=== PATIENT | male | born 1980 | race Caucasian/White ===

== ENCOUNTER → 2016-10-01 | Outpatient (CLI) | payer BC ==
[~2016-10-01] VITALS: Ht 172.7 cm; Wt 90.1 kg
[~2016-10-01] MED LIST: GLUC1CAP35 PO; MULT-506 PO; OMEG10007 PO
[2016-10-01 16:01] VITALS: BP 143/88; PULSE 73; Ht 172.7 cm; Wt 90.1 kg
== END | disposition home or self-care (01) ==
LOC: C.NEUR 14:42
PROVIDERS: ATTEND Internal Medicine Pulmonary Disease
DX: R06.83 Snoring (principal); R06.81 Apnea, not elsewhere classified; G47.19 Other hypersomnia; Z98.890 Other specified postprocedural states

== ENCOUNTER → 2016-10-07 | Outpatient (CLI) | payer BC ==
--- NOTE | 2016-10-10 17:25 | POLYSOMNOGRAPH REPORT ---
CLINICAL DATA: A 36-year-old male with BMI of 30.[address] Stone and myself for a sleep study. [facility] des[facility]. His is concerned about sleep apnea due to snoring and witnessed apneic episodes along with fatigue and hypersomnia. On the evening of 10/07/2016, home sleep apnea test was performed using a [employer] type 3 monitor. RECORDING RESULTS: Total recording time was 10 hours. The patient's estimated sleep time and the patient monitoring time was 8.7 hours. RESPIRATORY DATA: Mild sleep apnea was documented. The TAVON was 7. There were 3 obstructive, 1 mixed, and 4 central apneic episodes. There were 53 hypopneic episodes. The longest respiratory event recorded was 49 seconds. OXIMETRY DATA: Nocturnal hypoxemia was seen. Oxygen alejandro of 78%. Mean saturation was 96%. Time below 89% was 7 minutes. HEART RATE DATA: Heart rates ranged from 46-64 beats per minute. SNORING DATA: Snoring was recorded throughout the night. IMPRESSION: Mild sleep apnea/hypopnea with an TAVON of 7 with nocturnal hypoxemia. RECOMMENDATIONS: The patient may benefit from weight loss, use of an oral appliance, and repeat sleep study with CPAP. Clinical correlation is needed. ELLA
== END | disposition home or self-care (01) ==
LOC: C.NEUR 08:20
PROVIDERS: ATTEND Internal Medicine Pulmonary Disease
DX: G47.19 Other hypersomnia (principal); R06.83 Snoring; R06.81 Apnea, not elsewhere classified

== ENCOUNTER → 2016-10-25 | Outpatient (CLI) | payer BC ==
[~2016-10-25] VITALS: Ht 172.7 cm; Wt 89.2 kg
[2016-10-25 15:24] VITALS: BP 131/75; PULSE 66; Ht 172.7 cm; Wt 89.2 kg
== END | disposition home or self-care (01) ==
LOC: C.NEUR 14:45
PROVIDERS: ATTEND Internal Medicine Pulmonary Disease
DX: G47.30 Sleep apnea, unspecified (principal)

== ENCOUNTER 2021-08-27 03:17 | Inpatient (IN) ==
[2021-08-27] MEDS ORDERED: HYDROmorphone INJ 0.5 MG/0.5 ML SYR IV STA (04:38)
[2021-08-27 04:50] LABS: Basophils # (auto) 0.02 K/uL (0-0.2); Basophils % (auto) 0.1 %; Hematocrit (blood only) 43.9 % (42-52); Hemoglobin 14.5 g/dL (14.0-18.0); Immature Granulocytes # (auto) 0.03 K/uL (0.00-0.02); Immature Granulocytes % (auto) 0.2 %; Lymphocytes # (auto) 1.11 K/uL (1.2-3.4); Lymphocytes % (auto) 6.6 %; Mean Corpuscular Hemoglobin 31.1 pg (25-34); Mean Corpuscular Volume 94.2 fL (80-100); Mean Platelet Volume 9.4 fL (7.4-10.4); Monocytes # (auto) 1.53 K/uL (0.11-0.59); Monocytes % (auto) 9.2 %; Neutrophils # (auto) 14.01 K/uL (1.4-6.5); Neutrophils % (auto) 83.9 %; Platelet Count 284 K/uL (130-400); RDW Coefficient of Variation 12.6 % (11.5-14.5); RDW Standard Deviation 43.1 fL (36.4-46.3); Red Blood Count 4.66 M/uL (4.7-6.1)
[2021-08-27 05:09] LABS: Alanine Aminotransferase 31 (12-78); Albumin Level 2.9 gm/dl (3.4-5.0); Aspartate Aminotransferase 17 U/L (15-37); Blood Urea Nitrogen 7 mg/dl (7-18); Calcium 9.7 mg/dl (8.5-10.1); Carbon Dioxide 25 mmol/L (21-32); Chloride 103 mmol/L (98-107); Creatinine Clr Calc Pharmacy 110.9 ml/min; Est GFR (African American) 119.2 ml/min; Est GFR (Non-African American) 102.9 ml/min; Glucose 118 mg/dl (70-99); Lipase 166 U/L (73-393); Sodium 135 mmol/L (136-145)
[2021-08-27 05:10] LABS: INR 1.1 (0.9-1.1); Partial Thromboplastin Ratio 1.1; Partial Thromboplastin Time 30.1 Seconds (21.0-31.0); Prothrombin Time 11.2 Seconds (9.0-12.0)
[2021-08-27 05:14] LABS: Albumin Globulin Ratio 0.5 (0.9-2); Alkaline Phosphatase 76 U/L (45-117); Bilirubin,Total 1.1 mg/dl (0.2-1); Globulin 5.4 gm/dl (2.5-4.0); Total Protein 8.3 gm/dl (6.4-8.2); Troponin I < 0.015 ng/ml (0-0.045)
[2021-08-27] MEDS ORDERED: OPTIRAY 320 125ml IV ONE (05:35)
--- NOTE | 2021-08-27 05:36 | Emergency Department Note ---
Impression & Plan Bilateral pulmonary embolism, COVID-19, Chest pain, pleuritic Admit to the [facility] service ED Provider Note NAME: FLORENCE ARREGUIN AGE: 41 SEX: M ARRIVES VIA: Walk-In INFORMANT: Patient ED PROVIDER(S): Dian Ferrell DO CHIEF COMPLAINT: Shortness of breath and chest pain PLAN: Disposition: Patient will be admitted to the [facility] Condition: Critical MEDICAL DECISION MAKING: This is a 41-year-old male patient who presents to the emergency department with shortness of breath and chest pain. Patient was diagnosed with Covid pneumonia last week. Triage Nursing notes reviewed and agree with them. Prior medical records reviewed Vital Signs: reviewed and remarkable for tachycardia and tachypnea Differential diagnosis: Pleuritic chest pain; PE; worsening pneumonia ER treatment provided: IV Dilaudid x2 V heparin bolus IV heparin drip Diagnostics interpreted by me: ECG: Sinus tachycardia at [address] segment elevation noted. There is nonspecific T wave changes in the lateral leads. There is no ectopy. Cardiac Monitoring: Sinus tachycardia at 109 Laboratory studies: See below Imaging studies: As per stat rad CTA: Bilateral pulmonary emboli HPI: 41/M arrives for evaluation of chest pain shortness of breath. Patient was diagnosed with Covid pneumonia last week and in the past 24 hours has developed fairly severe chest wall pain and inability to take a deep breath. The patient has significantly shallow breathing. ROS: See above HPI for pertinent positives & negatives. A total of 10 systems reviewed and were otherwise negative. PAST MEDICAL HISTORY:See Below PAST SURGICAL HISTORY:See Below FAMILY HISTORY:See Below SOCIAL HISTORY:Lives with his and family and works at [employer] for the rest of us. HOME MEDICATIONS:See Below ALLERGIES:See Below VITALS:See Below PHYSICAL EXAMINATION: HEENT: Head - normocephalic and atraumatic Pupils are equal, round, and reactive to light. Extraocular eye muscles are intact, and sclera are anicteric. Nose - moist nasal mucosa without discharge. Mouth - moist buccal mucosa. Oropharynx is nonerythematous and there is no tonsillar exudate or edema noted. Neck: Supple; no JVD, nuchal rigidity, cervical lymphadenopathy. Heart: Tachycardic rate and rhythm. There is a normal S1 and S2 with no murmurs, clicks, or gallops appreciated. Lungs: Clear to auscultation bilaterally with no wheezes, rales, or rhonchi. Abdomen: Soft, completely nontender, nondistended, with good bowel sounds. There are no palpable pulsatile masses or hepatosplenomegaly. There is no guarding, rigidity, or rebound noted. Extremities: No evidence of cyanosis, clubbing, or edema. There are easily palpable peripheral pulses. Skin: warm and dry with good turgor and no rashes. ED COURSE: Times/Reassessments: 0415: The patient was evaluated in room C5. A complete history and physical was performed. An order was placed for continuous cardiac monitoring. The patient was in a sinus tachycardia at a rate of 109. An IV lock was initiated and labs were drawn as above. The patient will go for a stat CT of the chest to rule out PE. A twelve-lead EKG was obtained as described above. The patient went for a CT scan of the chest to rule out PE. This was positive. The patient will be bolu sed with IV heparin and started on heparin drip. She was placed on supplemental oxygen. I have personally spent greater than 30 minutes of critical care time in the direct management of this patient. This includes bedside care, interpretation of diagnostic studies, and testing, discussion with consultants, patient, and family members, and other required patient management activities. This 30 m inutes is in excess of all separately billable procedures. 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 Required: No Beliefs That Will Affect Care: None marital status: Current Living Situation: Family current occupational status: employed Feels Safe at Home: Yes Assistive Devices: CPAP Allergies Allergies Allergy/AdvReac Type Severity Reaction Status Date / Time No Known Drug Allergies Allergy Verified 08/19/21 08:14 Home Meds Home Medications Medication Instructions Recorded Confirmed pantoprazole 20 mg tablet,delayed 20 mg PO DAILY 06/17/19 08/27/21 release Tumeric 1 cap PO UD 08/19/21 08/27/21 glucosamine-chondroitin 500 mg-400 1 tab PO UD 08/19/21 08/27/21 mg tablet multivitamin 1 tab PO UD 08/19/21 08/27/21 omega 0-gen-hea-fish oil 1,000 mg 1 cap PO UD 08/19/21 08/27/21 (120 mg-180 mg) capsule (Fish Oil) Previous Rx's Medication Instructions Recorded albuterol sulfate 90 mcg/actuation 3 inh INHALATION Q6H #18 g 08/19/21 aerosol inhaler benzonatate 200 mg capsule 200 mg PO TID PRN #30 cap 08/19/21 Results & Data (ED) Vital Signs Vital Signs - 24 hr 08/27/21 03:21 08/27/21 04:38 08/27/21 05:33 Temperature 37.5 C Temperature Source Temporal Artery Scan Pulse Rate 123 H 109 H Pulse Rate [Apical] 116 H Pulse Rate from SpO2 Sensor Respiratory Rate 30 H 21 34 H Respiratory Effort / Characteristics Non-Labored Spontaneous Respiratory Depth Normal Respiratory Pattern Blood Pressure 139/70 Blood Pressure [Right Arm] 139/89 Blood Pressure Mean 93 Blood Pressure Mean [Right Arm] 105 Pulse Oximetry 97 95 92 Oxygen Delivery Method Room Air Room Air Sepsis Recent Fever Within 48 Hours No Sepsis New/Unexplained Change in Mental Status No Sepsis Action Taken by Nursing Physician Notified 08/27/21 07:00 08/27/21 07:30 08/27/21 07:31 Temperature Temperature Source Pulse Rate 96 H 97 H Pulse Rate [Apical] 99 H Pulse Rate from SpO2 Sensor 97 H 97 H Respiratory Rate 26 H 28 H 28 H Respiratory Effort / Characteristics Spontaneous Respiratory Depth Normal Respiratory Pattern Rapid/Shallow Tachypnea Blood Pressure 137/99 Blood Pressure [Right Arm] 137/99 Blood Pressure Mean 111 Blood Pressure Mean [Right Arm] 111 Pulse Oximetry 94 92 92 Oxygen Delivery Method Room Air Sepsis Recent Fever Within 48 Hours Sepsis New/Unexplained Change in Mental Status Sepsis Action Taken by Nursing 08/27/21 07:32 08/27/21 08:00 08/27/21 08:30 Temperature Temperature Source Pulse Rate 99 H 94 H Pulse Rate [Apical] Pulse Rate from SpO2 Sensor 100 H 94 H Respiratory Rate 28 H 26 H Respiratory Effort / Characteristics Respiratory Depth Respiratory Pattern Blood Pressure 142/67 H Blood Pressure [Right Arm] Blood Pressure Mean 92 Blood Pressure Mean [Right Arm] Pulse Oximetry 92 92 91 Oxygen Delivery Method Room Air Sepsis Recent Fever Within 48 Hours Sepsis New/Unexplained Change in Mental Status Sepsis Action Taken by Nursing 08/27/21 09:00 08/27/21 09:06 08/27/21 09:30 Temperature Temperature Source Pulse Rate 95 H 100 H Pulse Rate [Apical] 97 H Pulse Rate from SpO2 Sensor 96 H 99 H Respiratory Rate 33 H 26 H 42 H Respiratory Effort / Characteristics Non-Labored Spontaneous Respiratory Depth Normal Respiratory Pattern Regular Blood Pressure 119/78 121/73 Blood Pressure [Right Arm] 119/78 Blood Pressure Mean 91 89 Blood Pressure Mean [Right Arm] 91 Pulse Oximetry 93 93 93 Oxygen Delivery Method Room Air Sepsis Recent Fever Within 48 Hours Sepsis New/Unexplained Change in Mental Status Sepsis Action Taken by Nursing 08/27/21 10:00 Temperature Temperature Source Pulse Rate 119 H Pulse Rate [Apical] Pulse Rate from SpO2 Sensor 119 H Respiratory Rate 43 H Respiratory Effort / Characteristics Respiratory Depth Respiratory Pattern Blood Pressure 152/121 H Blood Pressure [Right Arm] Blood Pressure Mean 131 Blood Pressure Mean [Right Arm] Pulse Oximetry 93 Oxygen Delivery Method Sepsis Recent Fever Within 48 Hours Sepsis New/Unexplained Change in Mental Status Sepsis Action Taken by Nursing Laboratory Data Result diagrams: 08/27/21 04:41 08/27/21 04:41 Lab Results 08/27/21 08/27/21 08/27/21 Range/Units 04:41 04:41 04:41 WBC 16.70 H (4.8-10.8) K/uL RBC 4.66 L (4.7-6.1) M/uL Hgb 14.5 (14.0-18.0) g/dL Hct 43.9 (42-52) % MCV 94.2 (80-100) fL MCH 31.1 (25-34) pg MCHC 33.0 (32-36) g/dL RDW Std Deviation 43.1 (36.4-46.3) fL RDW Coeff of Nader 12.6 (11.5-14.5) % Plt Count 284 (130-400) K/uL MPV 9.4 (7.4-10.4) fL Immature Gran % (Auto) 0.2 % Neut % (Auto) 83.9 % Lymph % (Auto) 6.6 % Placer % (Auto) 9.2 % Eos % (Auto) 0.0 % Baso % (Auto) 0.1 % Neut # (Auto) 14.01 H (1.4-6.5) K/uL Lymph # (Auto) 1.11 L (1.2-3.4) K/uL Placer # (Auto) 1.53 H (0.11-0.59) K/uL Eos # (Auto) 0.00 (0-0.5) K/uL Baso # (Auto) 0.02 (0-0.2) K/uL Immature Gran # (Auto) 0.03 H (0.00-0.02) K/uL PT 11.2 (9.0-12.0) Seconds INR 1.1 (0.9-1.1) APTT 30.1 (21.0-31.0) Seconds PTT Ratio 1.1 Sodium 135 L (136-145) mmol/L Potassium 4.0 (3.5-5.1) mmol/L Chloride 103 (98-107) mmol/L Carbon Dioxide 25 (21-32) mmol/L Anion Gap 7.0 (3-11) BUN 7 (7-18) mg/dl Creatinine 0.91 (0.6-1.4) mg/dl Est Cr Clr Drug Dosing 110.9 ml/min Est GFR ( Amer) 119.2 ml/min Est GFR (Non-Af Amer) 102.9 ml/min BUN/Creatinine Ratio 8.0 L (10-20) Glucose 118 H (70-99) mg/dl Calcium 9.7 (8.5-10.1) mg/dl Total Bilirubin 1.1 H (0.2-1) mg/dl AST 17 (15-37) U/L ALT 31 (12-78) Alkaline Phosphatase 76 (45-117) U/L Troponin I < 0.015 (0-0.045) ng/ml C-Reactive Protein (0-0.29) mg/dl Total Protein 8.3 H (6.4-8.2) gm/dl Albumin 2.9 L (3.4-5.0) gm/dl Globulin 5.4 H (2.5-4.0) gm/dl Albumin/Globulin Ratio 0.5 L (0.9-2) Lipase 166 (73-393) U/L 08/27/21 Range/Units 04:41 WBC (4.8-10.8) K/uL RBC (4.7-6.1) M/uL Hgb (14.0-18.0) g/dL Hct (42-52) % MCV (80-100) fL MCH (25-34) pg MCHC (32-36) g/dL RDW Std Deviation (36.4-46.3) fL RDW Coeff of Nader (11.5-14.5) % Plt Count (130-400) K/uL MPV (7.4-10.4) fL Immature Gran % (Auto) % Neut % (Auto) % Lymph % (Auto) % Placer % (Auto) % Eos % (Auto) % Baso % (Auto) % Neut # (Auto) (1.4-6.5) K/uL Lymph # (Auto) (1.2-3.4) K/uL Placer # (Auto) (0.11-0.59) K/uL Eos # (Auto) (0-0.5) K/uL Baso # (Auto) (0-0.2) K/uL Immature Gran # (Auto) (0.00-0.02) K/uL PT (9.0-12.0) Seconds INR (0.9-1.1) APTT (21.0-31.0) Seconds PTT Ratio Sodium (136-145) mmol/L Potassium (3.5-5.1) mmol/L Chloride (98-107) mmol/L Carbon Dioxide (21-32) mmol/L Anion Gap (3-11) BUN (7-18) mg/dl Creatinine (0.6-1.4) mg/dl Est Cr Clr Drug Dosing ml/min Est GFR ( Amer) ml/min Est GFR (Non-Af Amer) ml/min BUN/Creatinine Ratio (10-20) Glucose (70-99) mg/dl Calcium (8.5-10.1) mg/dl Total Bilirubin (0.2-1) mg/dl AST (15-37) U/L ALT (12-78) Alkaline Phosphatase (45-117) U/L Troponin I (0-0.045) ng/ml C-Reactive Protein 16.40 H (0-0.29) mg/dl Total Protein (6.4-8.2) gm/dl Albumin (3.4-5.0) gm/dl Globulin (2.5-4.0) gm/dl Albumin/Globulin Ratio (0.9-2) Lipase (73-393) U/L Administered Medications Acetaminophen (Acetaminophen 500 Mg Tab) 1,000 mg PO Q8H TEREZA Stop: 09/26/21 11:59 Last Admin: 08/27/21 21:32 Dose: 1,000 mg Documented by: [id number] Admin: 08/27/21 12:13 Dose: 1,000 mg Documented by: [id number] Heparin Sodium/Dextrose (Heparin Sodium/Dextrose) 25,000 units in 500 mls @ 27 mls/hr IV .[id number] [facility]; Protocol Stop: 09/26/21 06:59 Last Titration: 08/27/21 19:23 Dose: 1,350 units/hr, 27 mls/hr Documented by: [id number] Cosigned by: [id number] Admin: 08/27/21 07:29 Dose: 1,350 units/hr, 27 mls/hr Documented by: [id number] Cosigned by: [id number] Dexamethasone 6 mg/ Syringe 1.5 mls @ 1 mls/min IV Q24H TEREZA Stop: 09/26/21 11:59 Last Admin: 08/27/21 12:13 Dose: 1 mls/min Documented by: [id number] Tramadol HCl (Tramadol Hcl 50 Mg Tablet) 50 mg PO Q4H PRN PRN Reason: Pain Stop: 09/26/21 14:39 Last Admin: 08/27/21 16:55 Dose: 50 mg Documented by: [id number] Discontinued Medications Heparin Sodium (Porcine) (Heparin Sod (Porcine) 1000 Unit/Ml) 6,000 units IV NOW ONE Stop: 08/27/21 07:01 Last Admin: 08/27/21 07:29 Dose: 5,000 units Documented by: [id number] Cosigned by: [id number] Heparin Sodium/Dextrose (Heparin Iv Adult Wt-Based Standard With Bolus Protocol) 1 ea IV NOW STA; Protocol Stop: 08/27/21 06:44 Last Admin: 08/27/21 07:29 Dose: 1 ea Documented by: [id number] Hydromorphone HCl (Hydromorphone Inj 0.5 Mg/0.5 Ml Syr) 1 mg IV NOW STA Stop: 08/27/21 04:39 Last Admin: 08/27/21 04:47 Dose: 1 mg Documented by: [id number] Hydromorphone HCl (Hydromorphone Inj 1 Mg/Ml Syringe) 1 mg IV NOW STA Stop: 08/27/21 06:50 Last Admin: 08/27/21 07:27 Dose: 1 mg Documented by: [id number] Ioversol (Optiray 320 125ml) 118 ml IV ONCE ONE Stop: 08/27/21 05:36 Last Admin: 08/27/21 05:36 Dose: 1 ml Documented by: [id number] Ketorolac Tromethamine (Ketorolac Tromethamine 15 Mg/Ml Vial) 15 mg IV NOW STA Stop: 08/27/21 09:52 Last Admin: 08/27/21 10:13 Dose: 15 mg Documented by: [id number] Imaging Data Radiologist's Impression: Chest CTA 08/27/21 04:39 CHEST CTA for PULMONARY ARTERIES CT DOSE: 329.40 mGy.cm HISTORY: Atypical Chest Pain, eval for PE TECHNIQUE: Multiaxial CT images of the chest were performed following the intravenous administration of contrast to evaluate the pulmonary arteries. Maximal intensity projection images were also obtained. A dose lowering technique was utilized adhering to the principles of ALARA. COMPARISON STUDY: Chest CTA 08/19/2021. FINDINGS: No evidence for an aortic dissection. Interval development of multiple bilateral pulmonary emboli involving the majority of the segmental and subsegmental pulmonary arteries most pronounced within the lower lobes. No evidence for right-sided heart strain at this time. Trace left pleural effusion. No pericardial effusion. Hepatic steatosis. The visualized spleen is unremarkable. Small hiatus hernia. A few prominent mediastinal and bilateral hilar lymph nodes which are likely reactive. No fractures within the visualized osseous structures. No pneumothorax. Scattered multifocal groundglass airspace opacities most pronounced within the bilateral lower lobes have slightly progressed. This favors a mild to moderate multifocal pneumonia. IMPRESSION: 1. Interval development of multiple bilateral pulmonary emboli. No evidence for right-sided heart strain. 2. Trace left pleural effusion. 3. Interval progression of the mild to moderate multifocal pneumonia. This is likely secondary to a viral process. ACT 112: Negative or not required by law. Electronically signed by: Tommy Nevarez M.D. 08/27/2021 7:18 AM Discharge Plan Visit Data Chief Complaint: Chest Pain Stated Complaint: TROUBLE BREATHING,PAIN IN CHEST/BACK ED Provider: Dian Ferrell Discharge Problem: Bilateral pulmonary embolism, COVID-19, Chest pain, pleuritic Patient Disposition: Admitted As Inpatient Discharge Instructions Interventions: ED Discharge Assessment Last Done: 08/27/21 14:14
[2021-08-27] MEDS ORDERED: Heparin IV Adult Wt-Based Standard WITH Bolus Protocol IV STA (06:43)
[2021-08-27] MEDS ORDERED: HYDROmorphone INJ 1 MG/ML SYRINGE IV STA (06:49)
[2021-08-27] MEDS ORDERED: HEPARIN SOD (PORCINE) 1000 UNIT/ML IV ONE ×2 (06:58→07:00)
--- NOTE | 2021-08-27 07:20 | CT Scan Report ---
CHEST CTA for PULMONARY ARTERIES CT DOSE: 329.40 mGy.cm HISTORY: Atypical Chest Pain, eval for PE TECHNIQUE: Multiaxial CT images of the chest were performed following the intravenous administration of contrast to evaluate the pulmonary arteries. Maximal intensity projection images were also obtaine d. A dose lowering technique was utilized adhering to the principles of ALARA. COMPARISON STUDY: Chest CTA 08/19/2021. FINDINGS: No evidence for an aortic dissection. Interval development of multiple bilateral pulmonary emboli involving the majority of the segmental and subsegmental pulmonary arteries most pronounced wi thin the lower lobes. No evidence for right-sided heart strain at this time. Trace left pleural effus ion. No pericardial effusion. Hepatic steatosis. The visualized spleen is unremarkable. Small hiatus hernia. A few prominent mediastinal and bilateral hilar lymph nodes which are likely reactive. No fra ctures within the visualized osseous structures. No pneumothorax. Scattered multifocal groundglass ai rspace opacities most pronounced within the bilateral lower lobes have slightly progressed. This favo rs a mild to moderate multifocal pneumonia. IMPRESSION: 1. Interval development of multiple bilateral pulmonary emboli. No evidence for right-sided heart str ain. 2. Trace left pleural effusion. 3. Interval progression of the mild to moderate multifocal pneumonia. This is likely secondary to a v iral process. ACT 112: Negative or not required by law. Electronically signed by: Tommy Nevarez M.D. 08/27/2021 7:18 AM
[2021-08-27] MEDS: HEPARIN SODIUM/DEXTROSE 25,000 UNITS/500 ML BAG IV SCH (07:29)
--- NOTE | 2021-08-27 08:30 | History & Physical Report ---
Date of Service August 27, 2021 Assessment & Plan (1) Bilateral pulmonary embolism: Plan: Bilateral PE provoked from Covid pneumonia. The patient is very uncomfortable secondary to pain and his rapid shallow breathing is as a result of this. He is not hypoxic. Minimal coughing is present. Dilaudid was minimally helpful. Gave Toradol 15 mg IV now. 2 L oxygen applied for comfort but patient is consistently 93% and above oxygen saturation. Heparin bolus and IV was started in ER. Would expect patient's pain to improve by 50% in the next 24 hours. Pulmonology consulted with large burden thrombus and recent history of hemoptysis. Echocardiogram ordered to ensure no right ventricular thrombus and right heart strain. (2) Pneumonia due to COVID-19 virus: Plan: Patient is day 14 of symptoms with persistent pneumonia but no significant oxygen requirement. Will hold on steroids at this time. No other Covid specific treatments are indicated. (3) JAMES (obstructive sleep apnea): Plan: Will order CPAP at 7 cm water per home settings. Notably patient has been noncompliant with CPAP for 2 months secondary to machine recall. (4) GERD (gastroesophageal reflux disease): Plan: cont PPI per home regimen. (5) DVT prophylaxis: Plan: heparin drip Full Code Dispo-to PCU DO [facility] History of Present Illness Chief Complaint: SOB/chest pain Primary Care Provider: NO PCP 41-year-old man with known Covid pneumonia diagnosed last week presented with pleuritic chest pain and shortness of breath. On 08/12 he reports feeling generalized achiness. 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 He subsequently developed a sinus headache with dark yellow mucus from his nose. He denies any fevers or chills but reported coughing. He developed pleuritic chest pain on 08/19 and went to the [facility] ER. He was sent home with albuterol. On 08/25 he developed hemoptysis. Yesterday, he took a Luis back and body with some improvement in pain but ultimately presented to the ER because of worsening chest pain and persistent shortness of breath or shallow breathing. Work-up revealed interval development of multiple bilateral pulmonary emboli in the setting of multifocal pneumonia. Although he presented with shallow breathing he has no oxygen requirements. He was treated with Dilaudid for pain and started on a heparin drip with bolus. Lab work revealed elevated white blood cell count to 16.7. Patient is known to be unvaccinated against medical coronavirus. He has a history of moderate obstructive sleep apnea with nocturnal hypoxemia on CPAP at 7 cmH2O. he has been noncompliant with CPAP for the last 2 months because of a recall on his machine. Father with a h/o blood clot, multiple comorbidities. Allergies Allergy/AdvReac Type Severity Reaction Status Date / Time No Known Drug Allergies Allergy Verified 08/19/21 08:14 Home Medications Medication Instructions Recorded Confirmed Type pantoprazole 20 mg tablet,delayed 20 mg PO DAILY 06/17/19 08/27/21 History release Tumeric 1 cap PO UD 08/19/21 08/27/21 History albuterol sulfate 90 mcg/actuation 3 inh INHALATION Q6H #18 g 08/19/21 08/27/21 Rx aerosol inhaler benzonatate 200 mg capsule 200 mg PO TID PRN #30 cap 08/19/21 08/27/21 Rx glucosamine-chondroitin 500 mg-400 1 tab PO UD 08/19/21 08/27/21 History mg tablet multivitamin 1 tab PO UD 08/19/21 08/27/21 History omega 4-bey-kcj-fish oil 1,000 mg 1 cap PO UD 08/19/21 08/27/21 History (120 mg-180 mg) capsule (Fish Oil) Past Med/Surg History Medical History (Updated 08/27/21 @ 09:59 by Mary Carmen Fagan DO) Cognitive impairment GERD (gastroesophageal reflux disease) Nocturnal hypoxemia JAMES (obstructive sleep apnea) Surgical History (Updated 08/27/21 @ 10:00 by Mary Carmen Fagan DO) H/O knee surgery History of ankle surgery Family History Other Cancer Coronary heart disease Social History Smoking Status: Never smoker Hx Alcohol Use: Yes marital status: Current Living Situation: Family current occupational status: employed Feels Safe at Home: Yes Review of Systems Review of Systems: All other systems were reviewed and negative except as above in HPI and below. +Left calf muscle-tight +chest pain +cough +hemoptysis +SOB +left shoulder hurting wtih the chest pain Physical Exam Physical Exam: CONSTITUTIONAL: WNWD, vitals as above, generally appears uncomfortable 2/2 pain, breathing rapid and shallow, wincing in pain and grabbing left chest. EYES: pupils are round and equal bilaterally, normal conjunctivae, no scleral icterus ENT: external ear and nose normal, MMM NECK: trachea midline RESPIRATORY: clear to auscultation bilaterally, no crackles, rales or wheezes, normal respiratory effort CARDIOVASCULAR: regular rate and rhythm, S1 and 2 heard without murmurs, gallops or rubs, no JVD, no peripheral edema CHEST: inspection of chest was normal GASTROINTESTINAL: soft, nontender, ND, no guarding MUSCULOSKELETAL: strength 5/5 throughout, head is normocephalic and atraumatic, neck supple, normal palpation of chest wall without tenderness SKIN: warm and dry NEUROLOGIC: No facial palsy, no dysarthria. CN 2-12 grossly intact, normal cognition, normal speech, no tremor, no gross focal deficits. PSYCHIATRIC: alert cooperative and oriented to person, place and time. Results & Data Results & Data ([facility]) Vital Signs (Past 12 Hours) Vital Signs Temp Pulse Pulse Resp BP BP Pulse Ox 08/27/21 08:00 99 H 28 H 92 08/27/21 07:32 92 08/27/21 07:31 99 H 28 H 137/99 92 08/27/21 07:30 97 H 28 H 137/99 92 08/27/21 07:00 96 H 26 H 94 08/27/21 05:33 109 H 34 H 92 08/27/21 04:38 116 H 21 139/89 95 08/27/21 03:21 37.5 C 123 H 30 H 139/70 97 Laboratory Results Short CBC 08/27/21 08/27/21 08/27/21 Range/Units 04:41 04:41 04:41 WBC 16.70 H (4.8-10.8) K/uL RBC 4.66 L (4.7-6.1) M/uL Hgb 14.5 (14.0-18.0) g/dL Hct 43.9 (42-52) % MCV 94.2 (80-100) fL MCH 31.1 (25-34) pg MCHC 33.0 (32-36) g/dL RDW Std Deviation 43.1 (36.4-46.3) fL RDW Coeff of Nader 12.6 (11.5-14.5) % Plt Count 284 (130-400) K/uL MPV 9.4 (7.4-10.4) fL Immature Gran % (Auto) 0.2 % Neut % (Auto) 83.9 % Lymph % (Auto) 6.6 % Weston % (Auto) 9.2 % Eos % (Auto) 0.0 % Baso % (Auto) 0.1 % Neut # (Auto) 14.01 H (1.4-6.5) K/uL Lymph # (Auto) 1.11 L (1.2-3.4) K/uL Weston # (Auto) 1.53 H (0.11-0.59) K/uL Eos # (Auto) 0.00 (0-0.5) K/uL Baso # (Auto) 0.02 (0-0.2) K/uL Immature Gran # (Auto) 0.03 H (0.00-0.02) K/uL PT 11.2 (9.0-12.0) Seconds INR 1.1 (0.9-1.1) APTT 30.1 (21.0-31.0) Seconds PTT Ratio 1.1 Sodium 135 L (136-145) mmol/L Potassium 4.0 (3.5-5.1) mmol/L Chloride 103 (98-107) mmol/L Carbon Dioxide 25 (21-32) mmol/L Anion Gap 7.0 (3-11) BUN 7 (7-18) mg/dl Creatinine 0.91 (0.6-1.4) mg/dl Est Cr Clr Drug Dosing 110.9 ml/min Est GFR ( Amer) 119.2 ml/min Est GFR (Non-Af Amer) 102.9 ml/min BUN/Creatinine Ratio 8.0 L (10-20) Glucose 118 H (70-99) mg/dl Calcium 9.7 (8.5-10.1) mg/dl Total Bilirubin 1.1 H (0.2-1) mg/dl AST 17 (15-37) U/L ALT 31 (12-78) Alkaline Phosphatase 76 (45-117) U/L Troponin I < 0.015 (0-0.045) ng/ml Total Protein 8.3 H (6.4-8.2) gm/dl Albumin 2.9 L (3.4-5.0) gm/dl Globulin 5.4 H (2.5-4.0) gm/dl Albumin/Globulin Ratio 0.5 L (0.9-2) Lipase 166 (73-393) U/L BMP 08/27/21 04:41 Sodium 135 L Potassium 4.0 Chloride 103 Carbon Dioxide 25 BUN 7 Creatinine 0.91 Glucose 118 H Calcium 9.7 Cardiac Enzymes 08/27/21 Range/Units 04:41 Troponin I < 0.015 (0-0.045) ng/ml Liver Function 08/27/21 Range/Units 04:41 Total Bilirubin 1.1 H (0.2-1) mg/dl AST 17 (15-37) U/L ALT 31 (12-78) Alkaline Phosphatase 76 (45-117) U/L Albumin 2.9 L (3.4-5.0) gm/dl Diagnostic Findings Chest CTA 08/27/21 04:39 CHEST CTA for PULMONARY ARTERIES CT DOSE: 329.40 mGy.cm HISTORY: Atypical Chest Pain, eval for PE TECHNIQUE: Multiaxial CT images of the chest were performed following the intravenous administration of contrast to evaluate the pulmonary arteries. Max imal intensity projection images were also obtained. A dose lowering technique was utilized adhering to the principles of ALARA. COMPARISON STUDY: Chest CTA 08/19/2021. FINDINGS: No evidence for an aortic dissection. Interval development of multiple bilateral pulmonary emboli involving the majority of the segmental and subsegmental pulmonary arteries most pronounced within the lower lobes. No evidence for right-sided heart strain at this time. Trace left pleural effusion. No pericardial effusion. Hepatic steatosis. The visualized spleen is unremarkable. Small hiatus hernia. A few prominent mediastinal and bilateral hilar lymph nodes which are likely reactive. No fractures within the visualized osseous structures. No pneumothorax. Scattered multifocal groundglass airspace opacities most pronounced within the bilateral lower lobes have slightly progressed. This favors a mild to moderate multifocal pneumonia. IMPRESSION: 1. Interval development of multiple bilateral pulmonary emboli. No evidence for right-sided heart strain. 2. Trace left pleural effusion. 3. Interval progression of the mild to moderate multifocal pneumonia. This is likely secondary to a viral process. ACT 112: Negative or not required by law. Electronically signed by: Tommy Nevarez M.D. 08/27/2021 7:18 AM
[2021-08-27] MEDS ORDERED: KETOROLAC TROMETHAMINE 15 MG/ML VIAL IV STA (09:51)
[2021-08-27] MEDS: ACETAMINOPHEN 500 MG TAB PO SCH ×2 (12:13→21:32)
[2021-08-27] MEDS: dexAMETHasone 6 MG in SYRINGE 0 ML IV SCH (12:13)
[2021-08-27] MEDS ORDERED: oxyCODONE HCL IR 5 MG TAB (IMMEDIATE RELEASE) PO PRN (13:35)
[2021-08-27] MEDS ORDERED: ACETAMINOPHEN 325 MG TAB PO PRN (14:07)
[2021-08-27] MEDS ORDERED: ONDANSETRON INJ 2 MG/ML 2 ML VIAL IV PRN (14:07)
[2021-08-27] MEDS ORDERED: BENZONATATE 100 MG CAPSULE PO PRN (14:07)
[2021-08-27] MEDS ORDERED: POLYETHYLENE (MIRALAX) 17 GM PACK PO PRN (14:07)
[2021-08-27] MEDS ORDERED: traMADol HCL 50 MG TABLET PO PRN (14:40)
--- NOTE | 2021-08-27 14:40 | Pulmonary Consultation ---
Date of Consultation August 27, 2021 Assessment & Plan (1) Bilateral pulmonary embolism: (2) Pneumonia due to COVID-19 virus: (3) Pleuritic chest pain: (4) Pulmonary infarct: Impression: 41-year-old male unvaccinated for Covid now admitted with acute PEs. He has peripheral infiltrates which could be secondary to Covid but also may represent evolving pulmonary infarcts. Septic emboli may have a similar pattern although the patient does not have history of infection or clear infectious symptomatologies. Of note his white count is mildly elevated. Recommendations: 1. Acute PE: Continue anticoagulation with heparin. PE in the setting of Covid requires least 3 months of anticoagulation. The patient may benefit from referral to hematology in the outpatient setting after 3 months to consider hypercoagulable work-up given his family history. Troponin was negative. Check a BNP for complete risk stratification. No indication for thrombolytics 2. Hemoptysis: Suspect this is related to the PEs. This is not a contraindication to anticoagulation. Continue to follow for now. If the patient demonstrates massive hemoptysis, we may need to revisit the issue. 3. Abnormal CT scan: Recommend checking procalcitonin and blood cultures as septic emboli could have a similar pattern. Again these may also be consistent with pulmonary infarcts. Continued clinical follow-up with repeat CBC is recommended. 4. Covid pneumonitis: Recommend checking CRP. It is unclear whether the patient's hypoxemia is related to the pulmonary emboli or Covid pneumonitis so the indication for steroids is somewhat soft. I do not feel particularly strongly 1 way or the other at this point in time. If it offers him some pain relief, dexamethasone may be continued until the patient is no longer on oxygen. He would not be a candidate for additional immunosuppressive regimens however CRP may be helpful in guiding therapy in the future should he clinically worsen. Recommended the patient get his Covid vaccination 90 days after his initial diagnosis. Would also recommend that his family get the vaccine. 5. Chest discomfort: Typically the pleuritic chest pain associated with pulmonary infarcts and pleurisy responds better to nonsteroidal anti- inflammatories than narcotics. He did not have a response to Dilaudid. Recommend Toradol. Tramadol may also be considered although the patient would like to avoid narcotics if at all possible. Will reassess tomorrow to ensure the patient's hemoptysis is not worsening. The above recommendations and plan were extensively discussed with the patient. Questions were answered to the best of my ability. He expressed understanding and is in agreement with the plan as outlined. History of Present Illness Attending Physician: Mary Carmen Fagan, History of Present Illness Asked by hospitalist to evaluate this patient with COVID-19 pneumonia and PEs with tachypnea secondary to chest pain. History is obtained from discussion with the patient as well as review of the electronic medical record. The patient is a 41-year-old male who was diagnosed with Covid at the end of last month. 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 He is elected to not pursue vaccination. He states he initially only had some sinus congestion with his cold but over the last week or so, he developed cough with some blood-tinged phlegm. He presented to the emergency room today due to significant chest discomfort. He states that whenever he moves he is having significant pleuritic chest pain. He is also had an increase in his hemoptysis. He denies fevers chills or night sweats. He did have a CT scan performed in the emergency room showing multiple bilateral PEs with multifocal pneumonia. Some of these may represent early pulmonary infarcts. He was treated with Dilaudid in the emergency room which she does not believe offered him a clinical benefit as well as Toradol which she thinks may have been slightly beneficial. His oxygen saturation dropped below 94% and he was initiated on dexamethasone by the hospitalist for Covid pneumonitis. He denies any syncope or presyncope. He does have a family history of blood clots. He states his father has had DVTs or PEs but he has a multitude of medical problems including coronary disease etc.. There is no family history of sudden cardiac that he is aware of and is never been advised of any hypercoagulable conditions. Allergies Allergy/AdvReac Type Severity Reaction Status Date / Time No Known Drug Allergies Allergy Verified 08/19/21 08:14 Home Medications Medication Instructions Recorded Confirmed Type pantoprazole 20 mg tablet,delayed 20 mg PO DAILY 06/17/19 08/27/21 History release Tumeric 1 cap PO UD 08/19/21 08/27/21 History albuterol sulfate 90 mcg/actuation 3 inh INHALATION Q6H #18 g 08/19/21 08/27/21 Rx aerosol inhaler benzonatate 200 mg capsule 200 mg PO TID PRN #30 cap 08/19/21 08/27/21 Rx glucosamine-chondroitin 500 mg-400 1 tab PO UD 08/19/21 08/27/21 History mg tablet multivitamin 1 tab PO UD 08/19/21 08/27/21 History omega 5-rbw-cvl-fish oil 1,000 mg 1 cap PO UD 08/19/21 08/27/21 History (120 mg-180 mg) capsule (Fish Oil) Patient History Medical History (Updated 08/27/21 @ 14:35 by Rusty Burkett MD) Cognitive impairment GERD (gastroesophageal reflux disease) Nocturnal hypoxemia JAMES (obstructive sleep apnea) Surgical History (Updated 08/27/21 @ 10:00 by Mary Carmen Fagan DO) H/O knee surgery History of ankle surgery Family History Other Cancer Coronary heart disease Social History Smoking Status: Never smoker Hx Alcohol Use: Yes marital status: Current Living Situation: Family current occupational status: employed Feels Safe at Home: Yes Review of Systems Review of Systems: Please refer to admission H&P Physical Exam Constitutional: WD/WN, vitals as above Neck: trachea midline, no thyromegaly Respiratory: normal respiratory effort, lungs clear to auscultation Cardiovascular: RRR, no murmur, no edema Gastrointestinal (Abdomen): normal bowel sounds, soft, nontender, no hepatosplenomegaly Musculoskeletal: Extremities: extremities normal to inspection Skin: no rashes, warm and dry Neurologic: Nonfocal exam Lymphatic: no cervical lymphadenopathy Results & Data Results & Data ([facility]) Vital Signs (Past 12 Hours) Vital Signs Temp Pulse Pulse Resp BP BP Pulse Ox 08/27/21 13:00 102 H 26 H 125/74 97 08/27/21 12:30 93 H 28 H 118/69 98 08/27/21 12:00 92 H 25 H 115/70 97 08/27/21 11:30 101 H 28 H 122/81 98 08/27/21 11:00 119 H 31 H 121/86 97 08/27/21 10:00 119 H 43 H 152/121 H 93 08/27/21 09:30 100 H 42 H 121/73 93 08/27/21 09:06 97 H 26 H 119/78 93 08/27/21 09:00 95 H 33 H 119/78 93 08/27/21 08:30 94 H 26 H 142/67 H 91 08/27/21 08:00 99 H 28 H 92 08/27/21 07:32 92 08/27/21 07:31 99 H 28 H 137/99 92 08/27/21 07:30 97 H 28 H 137/99 92 08/27/21 07:00 96 H 26 H 94 08/27/21 05:33 109 H 34 H 92 08/27/21 04:38 116 H 21 139/89 95 08/27/21 03:21 37.5 C 123 H 30 H 139/70 97 Laboratory Results Troponin negative Critical Care Results & Data Vital Signs (Past 12 Hours) Vital Signs Temp Pulse Pulse Resp BP BP Pulse Ox 08/27/21 13:00 102 H 26 H 125/74 97 08/27/21 12:30 93 H 28 H 118/69 98 08/27/21 12:00 92 H 25 H 115/70 97 08/27/21 11:30 101 H 28 H 122/81 98 08/27/21 11:00 119 H 31 H 121/86 97 08/27/21 10:00 119 H 43 H 152/121 H 93 08/27/21 09:30 100 H 42 H 121/73 93 08/27/21 09:06 97 H 26 H 119/78 93 08/27/21 09:00 95 H 33 H 119/78 93 08/27/21 08:30 94 H 26 H 142/67 H 91 08/27/21 08:00 99 H 28 H 92 08/27/21 07:32 92 08/27/21 07:31 99 H 28 H 137/99 92 08/27/21 07:30 97 H 28 H 137/99 92 08/27/21 07:00 96 H 26 H 94 08/27/21 05:33 109 H 34 H 92 08/27/21 04:38 116 H 21 139/89 95 08/27/21 03:21 37.5 C 123 H 30 H 139/70 97 Lab & Micro Results (Past 24 Hours) RBC 4.66 M/uL (4.7-6.1) L 08/27/21 WBC 16.70 K/uL (4.8-10.8) H 08/27/21 Hgb 14.5 g/dL (14.0-18.0) 08/27/21 Hct 43.9 % (42-52) 08/27/21 MCV 94.2 fL (80-100) 08/27/21 MCH 31.1 pg (25-34) 08/27/21 MCHC 33.0 g/dL (32-36) 08/27/21 RDW Standard Deviation 43.1 fL (36.4-46.3) 08/27/21 RDW Coefficient of Variation 12.6 % (11.5-14.5) 08/27/21 Plt Count 284 K/uL (130-400) 08/27/21 MPV 9.4 fL (7.4-10.4) 08/27/21 Neutrophils (%) (Auto) 83.9 % 08/27/21 Lymphocytes (%) (Auto) 6.6 % 08/27/21 Monocytes # (Auto) 1.53 K/uL (0.11-0.59) H 08/27/21 Eosinophils # (Auto) 0.00 K/uL (0-0.5) 08/27/21 Immature Granulocyte % (Auto) 0.2 % 08/27/21 Neutrophils # (Auto) 14.01 K/uL (1.4-6.5) H 08/27/21 Lymphocytes # (Auto) 1.11 K/uL (1.2-3.4) L 08/27/21 Monocytes # (Auto) 1.53 K/uL (0.11-0.59) H 08/27/21 Eosinophils # (Auto) 0.00 K/uL (0-0.5) 08/27/21 Basophils # (Auto) 0.02 K/uL (0-0.2) 08/27/21 Immature Granulocyte # (Auto) 0.03 K/uL (0.00-0.02) H 08/27/21 Na 135 mmol/L (136-145) L 08/27/21 K 4.0 mmol/L (3.5-5.1) 08/27/21 Cl 103 mmol/L (98-107) 08/27/21 CO2 25 mmol/L (21-32) 08/27/21 Anion Gap 7.0 (3-11) 08/27/21 BUN 7 mg/dl (7-18) 08/27/21 Creatinine 0.91 mg/dl (0.6-1.4) 08/27/21 Estimated GFR ( Amer) 119.2 ml/min 08/27/21 Estimated GFR (Non-Af Amer) 102.9 ml/min 08/27/21 BUN/Creatinine Ratio 8.0 (10-20) L 08/27/21 Glu 118 mg/dl (70-99) H 08/27/21 Ca 9.7 mg/dl (8.5-10.1) 08/27/21 Total Bilirubin 1.1 mg/dl (0.2-1) H 08/27/21 AST 17 U/L (15-37) 08/27/21 ALT 31 (12-78) 08/27/21 Alkaline Phosphatase 76 U/L (45-117) 08/27/21 TP 8.3 gm/dl (6.4-8.2) H 08/27/21 Albumin 2.9 gm/dl (3.4-5.0) L 08/27/21 Globulin 5.4 gm/dl (2.5-4.0) H 08/27/21 Albumin/Globulin Ratio 0.5 (0.9-2) L 08/27/21 2 Calcium Level 9.7 mg/dl (8.5-10.1) 08/27/21 04:41 08/27/21 Prothromb Time International Ratio 1.1 (0.9-1.1) 08/27/21 04:41 08/27/21 Diagnostic Findings (Past 24 Hours) Chest CTA 08/27/21 04:39 CHEST CTA for PULMONARY ARTERIES CT DOSE: 329.40 mGy.cm HISTORY: Atypical Chest Pain, eval for PE TECHNIQUE: Multiaxial CT images of the chest were performed following the intravenous administration of contrast to evaluate the pulmonary arteries. Maximal intensity projection images were also obtained. A dose lowering technique was utilized adhering to the principles of ALARA. COMPARISON STUDY: Chest CTA 08/19/2021. FINDINGS: No evidence for an aortic dissection. Interval development of multiple bilateral pulmonary emboli involving the majority of the segmental and subsegmental pulmonary arteries most pronounced within the lower lobes. No evidence for right-sided heart strain at this time. Trace left pleural effusion. No pericardial effusion. Hepatic steatosis. The visualized spleen is unremarkable. Small hiatus hernia. A few prominent mediastinal and bilateral hilar lymph nodes which are likely reactive. No fractures within the visualized osseous structures. No pneumothorax. Scattered multifocal groundglass airspace opacities most pronounced within the bilateral lower lobes have slightly progressed. This favors a mild to moderate multifocal pneumonia. IMPRESSION: 1. Interval development of multiple bilateral pulmonary emboli. No evidence for right-sided heart strain. 2. Trace left pleural effusion. 3. Interval progression of the mild to moderate multifocal pneumonia. This is likely secondary to a viral process. ACT 112: Negative or not required by law. Electronically signed by: Tommy Nevarez M.D. 08/27/2021 7:18 AM RT Ventilator Mngmt (Last Documented) Ventilator Ordered Settings Respiratory Rate 26 08/27/21 13:00 Ventilator - PT Measurements Respiratory Rate 26 PG Care Time/CCT Total # of Minutes Spent Total Time Spent with Patient: Total time spent is greater than 50% in coordination of care (as documented) at patient's floor/unit and/or counseling patient: Coding Level of Care Code 58228 Inpt Consult Level 4 Diagnoses Bilateral pulmonary embolism I26.99 Pneumonia due to COVID-19 virus U07.1; J12.82 Pleuritic chest pain R07.81 Pulmonary infarct I26.99
[2021-08-27] MEDS ORDERED: KETOROLAC TROMETHAMINE 15 MG/ML VIAL IV PRN ×2 (16:00)
[2021-08-27 16:25] LABS: Partial Thromboplastin Ratio 1.9
[2021-08-27 16:29] LABS: Partial Thromboplastin Time 49.8 Seconds (21.0-31.0)
[2021-08-28] MEDS: HEPARIN SODIUM/DEXTROSE 25,000 UNITS/500 ML BAG IV SCH ×2 (03:01→20:18)
[2021-08-28] MEDS: ACETAMINOPHEN 500 MG TAB PO SCH ×3 (04:40→19:48)
[2021-08-28 06:30] LABS: Hematocrit (blood only) 39.4 % (42-52); Hemoglobin 13.2 g/dL (14.0-18.0); Mean Corpuscular Hemoglobin 31.2 pg (25-34); Mean Corpuscular Hgb Conc 33.5 g/dL (32-36); Mean Corpuscular Volume 93.1 fL (80-100); Mean Platelet Volume 9.9 fL (7.4-10.4); Platelet Count 321 K/uL (130-400); RDW Coefficient of Variation 12.6 % (11.5-14.5); RDW Standard Deviation 42.7 fL (36.4-46.3); Red Blood Count 4.23 M/uL (4.7-6.1); White Blood Count 20.63 K/uL (4.8-10.8)
[2021-08-28 06:49] LABS: Partial Thromboplastin Ratio 1.8
[2021-08-28 06:54] LABS: Partial Thromboplastin Time 47.6 Seconds (21.0-31.0)
[2021-08-28 07:05] LABS: BUN Creatinine Ratio 12.8 (10-20); Calcium 9.6 mg/dl (8.5-10.1); Creatinine Clr Calc Pharmacy 120.4 ml/min; Est GFR (African American) 124.3 ml/min; Est GFR (Non-African American) 107.2 ml/min; Potassium 4.2 mmol/L (3.5-5.1)
[2021-08-28] MEDS: PANTOprazole 40 MG TAB PO SCH (08:21)
--- NOTE | 2021-08-28 11:37 | Pulmonology Progress Note ---
Date of Service August 28, 2021 Assessment & Plan (1) Bilateral pulmonary embolism: (2) Pneumonia due to COVID-19 virus: (3) Pleuritic chest pain: (4) Pulmonary infarct: Plan: Impression: 41-year-old male unvaccinated for Covid now admitted with acute PEs. He has peripheral infiltrates which could be secondary to Covid but also may represent evolving pulmonary infarcts. Septic emboli may have a similar pattern although the patient does not have history of infection or clear infectious symptomatologies. He is clinically better today with pain control. His white count continues to climb. He was initiated on steroids. Recommendations: 1. Acute PE: Currently anticoagulated with heparin. PE in the setting of Covid requires least 3 months of anticoagulation. He appears HD stable and can transition to oral anticoagulation. The patient may benefit from referral to hematology in the outpatient setting after 3 months to consider hypercoagulable work-up given his family history. Troponin was negative. No indication for thrombolytics 2. Hemoptysis: Suspect this is related to the PEs and pulmonary infarcts. This appears to be decreasing over time. Continue to follow clinically 3. Abnormal CT scan: Procalcitonin negative. He is not been febrile but his white count is elevated, question possible demargination related to the steroids. Cultures have shown no growth to date. Would not recommend antibiotics in the setting. A follow-up CT scan in 3 to 4 months may be reasonable. 4. Covid pneumonitis: Initial CRP elevated at 16 and this morning increased to 31. As long as the patient qualifies based on need for supplemental oxygen, dexamethasone may be reasonable. If the patient does not require supplemental oxygen, steroids would not be recommended. It is unclear whether the patient's hypoxemia is related to the pulmonary emboli or Covid pneumonitis. He is not be a candidate for additional immunosuppressive regimens. Recommended the patient get his Covid vaccination 90 days after his initial diagnosis. Would also recommend that his family get the vaccine. He is at risk for progression of disease. 5. Chest discomfort: Continue Toradol and as needed tramadol. Patient appears to be hemodynamically stable. His hemoptysis is decreasing. Once his pain control is adequate he can be assessed for need for supplemental oxygen and potentially dismissed from the hospital. Pulmonary will sign off at this point in time. Feel free to contact us with additional questions or concerns Admission and Anticipated Discharge Date Admission Date: August 27, 2021 Subjective Patient seen and examined. EMR reviewed. He continues to have some scant hemoptysis but the volume and frequency are decreasing over time. His pain control is somewhat better but he continues to have episodes of chest discomfort. He is not had any syncope or presyncope. He denies any lower extremity edema. No nausea vomiting or diarrhea. He states the cough is occasionally worse when he eats or drinks. He is able to get up out of bed and ambulate. Review of Systems Review of Systems: All systems reviewed & are unremarkable except as noted in Subjective Physical Exam Constitutional: WD/WN, vitals as above Neck: trachea midline, no thyromegaly Respiratory: normal respiratory effort, lungs clear to auscultation Cardiovascular: RRR, no murmur, no edema Gastrointestinal (Abdomen): normal bowel sounds, soft, nontender, no hepatosplenomegaly Musculoskeletal: Extremities: extremities normal to inspection Skin: no rashes, warm and dry Lymphatic: no cervical lymphadenopathy Results & Data Results & Data ([facility]) Vital Signs (Past 12 Hours) Vital Signs Temp Pulse Pulse Resp BP Pulse Ox 08/28/21 08:02 36.7 C 97 H 19 129/87 97 08/28/21 07:00 99 H 08/28/21 03:34 36.9 C 94 H 128/81 94 08/28/21 00:00 97 H Laboratory Results 08/28/21 06:16 08/28/21 06:16 Diagnostic Findings no new imaging PG Care Time/CCT Total # of Minutes Spent Total Time Spent with Patient: Total time spent is greater than 50% in coordination of care (as documented) at patient's floor/unit and/or counseling patient: Coding Level of Care Code 54326 Subseq Hosp Care Lvl 3 Diagnoses Bilateral pulmonary embolism I26.99 Pneumonia due to COVID-19 virus U07.1; J12.82 Pleuritic chest pain R07.81 Pulmonary infarct I26.99 Time Spent (min) 35
[2021-08-28] MEDS: dexAMETHasone 6 MG in SYRINGE 0 ML IV SCH (11:42)
--- NOTE | 2021-08-28 14:30 | Hospitalist Progress Note ---
Date of Service August 28, 2021 Assessment & Plan (1) Bilateral pulmonary embolism: Plan: Bilateral PE provoked from Covid pneumonia. more comfortable today. Still some pain, tachycardia and min hypoxia. Min coughing present. Echocardiogram ordered to ensure no right ventricular thrombus and right heart strain. Cont heparin drip for total 48 hours with clot burden. Transition to apixaban prior to discharge. (2) Pneumonia due to COVID-19 virus: Plan: Patient is day 14 of symptoms with persistent pneumonia, now with mild oxygen requirement. Daily dexamethasone started on admission. No other Covid specific treatments are indicated. (3) JAMES (obstructive sleep apnea): Plan: Cont CPAP qHS. Notably patient has been noncompliant with CPAP for 2 months secondary to machine recall. (4) GERD (gastroesophageal reflux disease): Plan: cont PPI per home regimen. (5) DVT prophylaxis: Plan: heparin drip Full Code Dispo-to PCU DO Luis Fernando [facility] Hospitalist Admission and Anticipated Discharge Date Admission Date: August 27, 2021 Subjective 41-year-old man with Covid pneumonia presents with acute bilateral PE. Patient has been independently ambulating with dyspnea on exertion and elevated heart rate with exertion. He has elevated heart rate at rest and is asymptomatic. Much improved since yesterday with still some residual chest pain. Persistent hemoptysis. Tolerating p.o. Afebrile. Review of Systems Review of Systems: All other systems were reviewed and negative except as above Physical Exam Physical Exam: CONSTITUTIONAL: WNWD, vitals as above, NAD EYES: normal conjunctivae, no scleral icterus ENT: external ear and nose normal, MMM NECK: trachea midline RESPIRATORY: clear to auscultation bilaterally, no crackles, rales or wheezes, normal respiratory effort CARDIOVASCULAR: regular rate and rhythm, S1 and 2 heard without murmurs, gal lops or rubs, no JVD, no peripheral edema CHEST: inspection of chest was normal GASTROINTESTINAL: soft, nontender, ND, no guarding MUSCULOSKELETAL: strength 5/5 throughout, head is normocephalic and atraumatic, neck supple, normal palpation of chest wall without tenderness SKIN: warm and dry NEUROLOGIC: No facial palsy, no dysarthria. CN 2-12 grossly intact, normal cognition, normal speech, no tremor, no gross focal deficits. PSYCHIATRIC: alert cooperative and oriented to person, place and time. Results & Data Results & Data ([facility]) Vital Signs (Past 12 Hours) Vital Signs Temp Pulse Pulse Resp BP Pulse Ox Pulse Ox 08/28/21 14:07 95 08/28/21 12:00 36.6 C 102 H 18 107/82 96 08/28/21 08:02 36.7 C 97 H 19 129/87 97 08/28/21 07:00 99 H 08/28/21 03:34 36.9 C 94 H 128/81 94 Laboratory Results Short CBC 08/28/21 Range/Units 06:16 WBC 20.63 H (4.8-10.8) K/uL Hgb 13.2 L (14.0-18.0) g/dL Hct 39.4 L (42-52) % Plt Count 321 (130-400) K/uL BMP 08/28/21 06:16 Sodium 134 L Potassium 4.2 Chloride 102 Carbon Dioxide 26 BUN 11 D Creatinine 0.84 Glucose 113 H Calcium 9.6 Medications Administered Current Inpatient Medications Acetaminophen (Acetaminophen 500 Mg Tab) 1,000 mg PO Q8H [facility] Stop: 09/26/21 11:59 Last Admin: 08/28/21 11:42 Dose: 1,000 mg Documented by: Acetaminophen (Acetaminophen 325 Mg Tab) 650 mg PO Q4H PRN PRN Reason: Pain or Fever Stop: 09/26/21 14:06 Benzonatate (Benzonatate 100 Mg Capsule) 200 mg PO TID PRN PRN Reason: cough Stop: 09/26/21 14:06 Heparin Sodium/Dextrose (Heparin Sodium/Dextrose) 25,000 units in 500 mls @ 27 mls/hr IV .[id number] [facility]; Protocol Stop: 09/26/21 06:59 Last Titration: 08/28/21 06:57 Dose: 1,350 units/hr, 27 mls/hr Documented by: Dexamethasone 6 mg/ Syringe 1.5 mls @ 1 mls/min IV Q24H [facility] Stop: 09/26/21 11:59 Last Admin: 08/28/21 11:42 Dose: 1 mls/min Documented by: Ketorolac Tromethamine (Ketorolac Tromethamine 15 Mg/Ml Vial) 30 mg IV Q6H PRN PRN Reason: Pain Stop: 09/01/21 15:59 Last Admin: 08/28/21 09:42 Dose: 30 mg Documented by: Ondansetron HCl (Ondansetron Inj 2 Mg/Ml 2 Ml Vial) 4 mg IV Q6H PRN PRN Reason: Nausea Stop: 09/26/21 14:06 Pantoprazole Sodium (Pantoprazole 40 Mg Tab) 40 mg PO DAILY TEREZA Stop: 09/27/21 08:59 Last Admin: 08/28/21 08:21 Dose: 40 mg Documented by: Polyethylene Glycol (Polyethylene (Miralax) 17 Gm Pack) 17 gm PO DAILY PRN PRN Reason: Constipation Stop: 09/26/21 14:06 Tramadol HCl (Tramadol Hcl 50 Mg Tablet) 50 mg PO Q4H PRN PRN Reason: Pain Stop: 09/26/21 14:39 Last Admin: 08/27/21 16:55 Dose: 50 mg Documented by:
--- NOTE | 2021-08-28 15:46 | Electrocardiogram Report ---
Test Reason : Blood Pressure : / mmHG Vent. Rate : 113 BPM Atrial Rate : 113 BPM P-R Int : 152 ms QRS Dur : 098 ms QT Int : 298 ms P-R-T Axes : 052 043 018 degrees QTc Int : 408 ms Sinus tachycardia Incomplete right bundle branch block Nonspecific T wave abnormality Abnormal ECG When compared with ECG of 19-AUG-2021 07:18, Nonspecific T wave abnormality now evident in Lateral leads Confirmed by Shay Crawford ([id number]) on 08/28/2021 3:45:40 PM Referred By: REFERRED SELF Confirmed By:Shay Crawford
[2021-08-29] MEDS: ACETAMINOPHEN 500 MG TAB PO SCH ×2 (02:44→12:40)
[2021-08-29 07:27] LABS: Hematocrit (blood only) 37.5 % (42-52); Hemoglobin 12.7 g/dL (14.0-18.0); Mean Corpuscular Hemoglobin 31.3 pg (25-34); Mean Corpuscular Hgb Conc 33.9 g/dL (32-36); Mean Corpuscular Volume 92.4 fL (80-100); Mean Platelet Volume 10.3 fL (7.4-10.4); Platelet Count 353 K/uL (130-400); RDW Coefficient of Variation 12.8 % (11.5-14.5); RDW Standard Deviation 43.4 fL (36.4-46.3); Red Blood Count 4.06 M/uL (4.7-6.1); White Blood Count 19.95 K/uL (4.8-10.8)
[2021-08-29 07:47] LABS: Partial Thromboplastin Ratio 1.5; Partial Thromboplastin Time 38.8 Seconds (21.0-31.0)
[2021-08-29] MEDS: PANTOprazole 40 MG TAB PO SCH (08:33)
[2021-08-29] MEDS: dexAMETHasone 6 MG in SYRINGE 0 ML IV SCH (12:40)
[2021-08-29] MEDS: HEPARIN SODIUM/DEXTROSE 25,000 UNITS/500 ML BAG IV SCH ×2 (12:59→15:41)
[2021-08-29 14:32] LABS: Partial Thromboplastin Ratio 1.6; Partial Thromboplastin Time 41.8 Seconds (21.0-31.0)
--- NOTE | 2021-08-29 19:12 | Discharge Summary ---
Date of Service August 29, 2021 Admission HPI Per Admitting Provider 41-year-old man with known Covid pneumonia diagnosed last week presented with pleuritic chest pain and shortness of breath. On 08/12 he reports feeling generalized achiness. 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 He subsequently developed a sinus headache with dark yellow mucus from his nose. He denies any fevers or chills but reported coughing. He developed pleuritic chest pain on 08/19 and went to the [facility] ER. He was sent home with albuterol. On 08/25 he developed hemoptysis. Yesterday, he took a Luis back and body with some improvement in pain but ultimately presented to the ER because of worsening chest pain and persistent shortness of breath or shallow breathing. Work-up revealed interval development of multiple bilateral pulmonary emboli in the setting of multifocal pneumonia. Although he presented with shallow breathing he has no oxygen requirements. He was treated with Dilaudid for pain and started on a heparin drip with bolus. Lab work revealed elevated white blood cell count to 16.7. Patient is known to be unvaccinated against medical coronavirus. He has a history of moderate obstructive sleep apnea with nocturnal hypoxemia on CPAP at 7 cmH2O. he has been noncompliant with CPAP for the last 2 months because of a recall on his machine. Father with a h/o blood clot, multiple comorbidities. Admission Exam Per Admitting Provider CONSTITUTIONAL: WNWD, vitals as above, generally appears uncomfortable 2/2 pain, breathing rapid and shallow, wincing in pain and grabbing left chest. EYES: pupils are round and equal bilaterally, normal conjunctivae, no scleral icterus ENT: external ear and nose normal, MMM NECK: trachea midline RESPIRATORY: clear to auscultation bilaterally, no crackles, rales or wheezes, normal respiratory effort CARDIOVASCULAR: regular rate and rhythm, S1 and 2 heard without murmurs, gallops or rubs, no JVD, no peripheral edema CHEST: inspection of chest was normal GASTROINTESTINAL: soft, nontender, ND, no guarding MUSCULOSKELETAL: strength 5/5 throughout, head is normocephalic and atraumatic, neck supple, normal palpation of chest wall without tenderness SKIN: warm and dry NEUROLOGIC: No facial palsy, no dysarthria. CN 2-12 grossly intact, normal cognition, normal speech, no tremor, no gross focal deficits. PSYCHIATRIC: alert cooperative and oriented to person, place and time. Principal Diagnosis Bilateral pulmonary embolism likely secondary to Covid pneumonia Discharge Exam GENERAL: Alert and oriented x3. NAD, on RA. HEENT: No pallor, no icterus. Pupils equal, round and reactive to light. Oral mucosa moist. NECK: No JVD, no neck masses. HEART: S1 and S2 heard. Regular rate and rhythm. No murmur, no gallop. RESPIRATORY SYSTEM: Normal AP diameter. No accessory muscle use. No wheezing, no crackles. ABDOMEN: Soft, bowel sounds present, nontender, no distention. CENTRAL NERVOUS SYSTEM: No facial droop. Speech is clear. Obeys simple commands. Moves extremities. EXTREMITIES: No edema, no erythema seen. Discharge Data Allergies Allergy/AdvReac Type Severity Reaction Status Date / Time No Known Drug Allergies Allergy Verified 08/19/21 08:14 Consultations 08/27/21 07:30 ED Decision to Admit Stat 08/27/21 10:30 Consult Pulmonology Routine Ordered Studies 08/27/21 04:39 CT angio chest PE protocol Urgent Hospital Course (1) Bilateral pulmonary embolism: 41-year-old man with known Covid pneumonia diagnosed last week [employer] presented 08/27 with pleuritic chest pain and shortness of breath. On 08/12 he reports feeling generalized achiness. 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 He subsequently developed a sinus headache with dark yellow mucus from his nose. He developed pleuritic chest pain on 08/19 and went to the [facility] ER. He was sent home with albuterol. On 08/25 he developed hemoptysis. A day [employer], he took a Luis back and body with some improvement in pain but ultimately presented to the ER because of worsening chest pain and persistent shortness of breath or shallow breathing. Work-up in the ED showed multiple bilateral pulmonary emboli in the setting of multifocal pneumonia. He was put on heparin and was managed for the following: (1) Bilateral pulmonary embolism: (2) hemoptysis: Secondary to PE, getting better up to the day of discharge. Bilateral PE provoked from Covid pneumonia. more comfortable today.Patient reports coughing and hemoptysis getting better. Min coughing present. Echocardiogram ordered to ensure no right ventricular thrombus and right heart strain.Patient will be transitioned to oral Eliquis from 1215 evening, discussed at the bedside and patient aware of the dosing regimen for Eliquis with 10 mg twice daily for 7 days followed by 5 mg twice daily for the rest of the treatment duration. Patient to follow-up with primary care physician within 1 week time and follow- up with PCP recommendation for continuation of Eliquis. Will at least need 3 months of therapy at this point. (2) Pneumonia due to COVID-19 virus: Patient is day 14 of symptoms with persistent pneumonia, mild oxygen requirement at presentation, currently on room air..Will DC dexamethasone. Patient is good to go. Patient to maintain self-isolation for 10 days from the diagnosis of Covid. (3) JAMES (obstructive sleep apnea): Cont CPAP qHS. Notably patient has been noncompliant with CPAP for 2 months secondary to machine recall. (4) GERD (gastroesophageal reflux disease): Continue with home medications (5) DVT prophylaxis: Heparin drip transition to Eliquis Full Code Following instructions were communicated to the patient at the point of discharge: Follow-up with your primary care physician within a week time. Get your blood work [CBC and BMP] done in 3 to 5 days upon discharge. You will need a blood coagulation work-up in 3 months time. Follow-up with hematology doctor in 3 months time for possible hypercoagulability work-up for pulmonary embolism. Maintain self-isolation for 10 days primary diagnosis of Covid. Continue to adhere with mask. You will be started on Eliquis upon discharge. Take your first dose of 10 mg an hour after stopping your heparin drip followed by 10 mg every 12 hours for total of 14 doses; then continue with 5 mg twice a day. You will have to follow-up wi th your primary care physician on further recommendation on Eliquis at 3 months time. Based on the improvement of coughing up of blood, you are being discharged. If you are coughing up increasing amounts of blood or you will find yourself short of breath and weak/dizzy, please contact your primary care physician or emergency as soon as possible. Total Time Total Time Spent Total Time Spent (In Minutes): 40 Discharge Plan Discharge Items Patient Disposition: Home - Self-Care Reason For Visit: BILATERAL PE Discharge Diagnosis: Bilateral pulmonary embolism likely secondary to Covid pneumonia Activity: Resume your previous activity Non-emergency contact: Primary Care Provider Call non-emergency contact if: you have any medication questions, your symptoms worsen, your pain is not controlled and your temperature is above 101 Follow-up/Referrals: [facility],Hospital [Non-Staff] - Diet: Regular Addtl Attending Provider Instructions: Follow-up with your primary care physician within a week time. Get your blood work [CBC and BMP] done in 3 to 5 days upon discharge. You will need a blood coagulation work-up in 3 months time. Follow-up with hematology doctor in 3 months time for possible hypercoagulability work-up for pulmonary embolism. Maintain self-isolation for 10 days primary diagnosis of Covid. Continue to adhere with mask. You will be started on Eliquis upon discharge. Take your first dose of 10 mg an hour after stopping your heparin drip followed by 10 mg every 12 hours for total of 14 doses; then continue with 5 mg twice a day. You will have to follow-up with your primary care physician on further recommendation on Eliquis at 3 months time. Based on the improvement of coughing up of blood, you are being discharged. If you are coughing up increasing amounts of blood or you will find yourself short of breath and weak/dizzy, please contact your primary care physician or emergency as soon as possible. Pending Studies at Discharge: No Stand-Alone Forms: My [facility]PACE, Work/School Release, Smoking Cessation Medications and DC Order Prescriptions: New Eliquis 5 mg tablet 5 mg PO BID Qty: 74 RF: 0 acetaminophen [Tylenol Extra Strength] 500 mg Tablet 1,000 mg PO Q8H PRN (Reason: pain) 15 Days Qty: 45 RF: 0 Continued pantoprazole 20 mg tablet,delayed release (DR/EC) 20 mg PO DAILY RF: 0 multivitamin Tablet 1 tab PO UD RF: 0 glucosamine-chondroitin 500-400 mg Tablet 1 tab PO UD RF: 0 omega 6-xeg-ibd-fish oil [Fish Oil] 1,000 mg (120 mg-180 mg) Capsule 1 cap PO UD RF: 0 Tumeric 1 cap PO UD RF: 0 albuterol sulfate 90 mcg/actuation HFA aerosol inhaler 3 inh inhalation Q6H Qty: 18 RF: 2 benzonatate 200 mg capsule 200 mg PO TID PRN (Reason: cough) Qty: 30 RF: 1 Discharge Orders: Discharge Order (Routine); Ordered 08/29/21 Ordered By: Lawrence Greene Admission Data Admit Date/Time: 08/27/21 10:30 Attending Provider: Lawrence Greene Admit Provider: Mary Carmen Fagan Primary Care Provider: PCP,NO Other Providers: Rusty Burkett ; Mary Carmen Fagan Other Interventions: Discharge Summary Assessment (RN) Last Done: 08/29/21 16:57
[2021-08-29] MEDS ORDERED: APIXABAN 5 MG TABLET PO SCH (20:00)
== END 2021-08-29 19:04 | disposition home or self-care (01) | DRG 177 ==
LOC: ED 03:17 → EDINP 10:30 → SUATTDRO 10:30 → EDINP 14:14 → 2S 19:01